=== PATIENT | female | born 1965 | race Caucasian/White ===

== ENCOUNTER 2019-12-15 20:11 | Emergency (ER) | payer BC, SELFPAY ==
--- NOTE | 2019-12-15 20:21 | ED.GENADULT ---
HPI - General Adult General Chief complaint: Extremity Injury, Lower Stated complaint: left ankle injury Time Seen by Provider: 12/15/19 20:20 Source: patient Mode of arrival: Wheelchair Limitations: no limitations History of Present Illness HPI narrative: 54-year-old female here for evaluation of a left foot injury. Patient states that she was getting off of a plane earlier today and stepped wrong on the walkway. She had pain on the back of her leg. Since then has had discomfort with walking particularly in the back of her leg. She did not fall. Did not hit her head. No prior injuries. Has not tried anything for symptoms prior to arrival. Related Data Previous Rx's Medication Instructions Recorded hydrocodone-acetaminophen [[place]] 1 tab PO Q4-6H PRN #10 tab 12/15/19 Allergies Allergy/AdvReac Type Severity Reaction Status Date / Time No Known Drug Allergies Allergy Verified 12/15/19 21:05 Review of Systems Constitutional Constitutional: Denies headache(s) ENT Ears, Nose, Mouth, and Throat: Denies headache(s) Cardiovascular Cardiovascular: Denies chest pain and Denies dyspnea Respiratory Respiratory: Denies dyspnea Musculoskeletal Musculoskeletal: Denies tingling Comments: Left ankle/foot pain Integumentary/Breasts Skin/Breast: Denies lesions and Denies rash Neurologic Neurologic: Denies headache(s) and Denies tingling Hematologic/Lymphatic Hematologic/Lymphatic: Denies easy bleeding and Denies easy bruising Allergic/Immunologic Allergic/Immunologic: Denies urticaria Patient History Medical History Patient denies medical problems (Acute) Social History Smoking Status: Current every day smoker Exam Initial Vital Signs Initial Vital Signs: Vital Signs Temperature 98.5 F 12/15/19 20:22 Pulse Rate 85 12/15/19 20:22 Respiratory Rate 16 12/15/19 20:22 Blood Pressure 185/90 H 12/15/19 20:22 Pulse Oximetry 96 12/15/19 20:22 Const General: cooperative and comfortable Limitations: mental status not altered Cardio Pulses: dorsalis pedis present on the left Neuro Sensory Exam: no sensory deficits noted Extrem Other: Left knee unremarkable. Patient has no tenderness to palpation over the mediolateral malleolus. No tenderness to palpation on the anterior portion of the left ankle. Left foot unremarkable. Left toes unremarkable. Patient does have tenderness to palpation along the Achilles tendon specially on the insertion site on the left. The medial aspect of this Achilles tendon does appear to have a deficit in this area. She still is able to plantar flex her left foot however she is quite a bit of discomfort with this and it is not as mobile as the right. Psych Appearance: grossly normal and well kempt Procedures Orthopedic Splinting/Casting Injury #1: Side: left Lower Extremity Injury Location: ankle Lower Extremity Immobilizer: posterior splint Other Orthopedic Equipment: crutches Post splinting neuro exam: intact Post splinting vascular exam: intact Placed by: Nursing Course Orders Ordered: ED Orders 12/15/19 20:25 XR ankle LT min 3V Stat Discontinued Medications Hydrocodone Bitart/Acetaminophen ([place] 5/325) 1 tab PO NOW ONE Stop: 12/15/19 22:34 Last Admin: 12/15/19 22:40 Dose: 1 tab Documented by: [email or web address] Hydrocodone Bitart/Acetaminophen (Vicodin 5/325 Prepack) 1 bottle MISC SEEINSTR ONE Stop: 12/15/19 22:34 Last Admin: 12/15/19 22:41 Dose: 1 bottle Documented by: [email or web address] Vital Signs Vital signs: Vital Signs - 8 hr 12/15/19 20:22 12/15/19 23:01 Temperature 98.5 F Pulse Rate 85 87 Respiratory Rate 16 24 Blood Pressure 185/90 H 178/90 H Pulse Oximetry 96 97 Medical Decision Making Imaging Data Extremity x-ray #1: Radiologist's Impression: [address] [address] XRay Report Signed Patient: Anabell Kamara LMR#: [id number] : 1965Acct:[id number] Age/Sex: 54 / FDate of Service: 12/15/19 Loc: ED Accession Number: [id number] Procedure: XR ankle LT min 3V Ordering Provider: Nate Galo D.O. PROCEDURE: XR ANKLE LT MIN 3V INDICATIONS: injured while ambulating TECHNIQUE: 3 views of the ankle were acquired. COMPARISON: None. FINDINGS: Bones: No fractures or dislocations. Ankle mortise is normally aligned. No suspicious bony lesions. There is a small corticated ossicle distal to the medial malleolus. Calcaneal spurring. Soft tissues: No tibiotalar joint effusion. Achilles tendon appears normal. Diffuse soft tissue swelling. IMPRESSION: 1. No acute fracture. 2. Corticated ossicle distal to the medial malleolus, likely related to old injury. Dictated by: Jacquelyn Zuniga M.D. on 12/15/2019 at 21:27 Approved by: Jacquelyn Zuniga M.D. on 12/15/2019 at 21:29 [facility] Narrative Medical decision making narrative: Patient is neurovascularly intact. There are no fractures on the x-ray. Her physical exam is concerning for at least a partial disruption of the Achilles tendon on the left. This could potentially be a complete disruption however his somewhat difficult to ascertain today. She was placed in a posterior splint and in plantar flexion of the left ankle. She was given crutches. She is here visiting and is going to return home in approximately 1 week from now. I did inform her to contact the orthopedic provider who she has a relationship with back at home to let him/her know that there was concern about an Achilles tendon rupture. She was also given phone number for the local orthopedic group if she wishes to try to follow-up with them. She is given return precautions and follow-up instructions. She expressed understanding and agreement. Discharge Plan Departure Patient Disposition: Home Clinical Impression: Achilles tendon injury Qualifiers: Encounter type: initial encounter Laterality: left Qualified Code(s): S86.002A - Unspecified injury of left Achilles tendon, initial encounter Discharge Date/Time: 12/15/19 23:08 Instructions: How to Use Crutches, Achilles Tendon Rupture, How to Take Care of Your Splint Activity Restrictions/Additional Instructions: The splint does need to stay on in stay clean and stay dry. Recommend that on Tuesday you contact your orthopedic provider back home for a follow-up. Let them know that there was concern that you have a Achilles tendon tear. If you are going to be in this area for an extended period of time you can contact the [facility] group at [phone]. Return to the emergency department for any new or worsening symptoms Prescriptions: New hydrocodone-acetaminophen [[place]] 5-325 mg tablet 1 tab PO Q4-6H PRN (Reason: pain) Qty: 10 RF: 0
[2019-12-15 20:22] VITALS: BP 185/90; PULSE 85; RESP 16; TEMP 36.9; O2SAT 96; BMI 49.8
--- NOTE | 2019-12-15 20:25 | DI.RAD.S_ITS ---
PROCEDURE: XR ANKLE LT MIN 3V INDICATIONS: injured while ambulating TECHNIQUE: 3 views of the ankle were acquired. COMPARISON: None. FINDINGS: Bones: No fractures or dislocations. Ankle mortise is normally aligned. No suspicious bony lesions. There is a small corticated ossicle distal to the medial malleolus. Calcaneal spurring. Soft tissues: No tibiotalar joint effusion. Achilles tendon appears normal. Diffuse soft tissue swelling. IMPRESSION: 1. No acute fracture. 2. Corticated ossicle distal to the medial malleolus, likely related to old injury. Dictated by: Jacquelyn Zuniga M.D. on 12/15/2019 at 21:27 Approved by: Jacquelyn Zuniga M.D. on 12/15/2019 at 21:29
[2019-12-15] MEDS: HYDROCODONE/ACET 5/325 TABLET 1 TAB PO (22:40)
[2019-12-15] MEDS: HYDROCODONE/ACET 5/325 PREPACK 1 BOTTLE MISC (22:41)
[2019-12-15 23:01] VITALS: BP 178/90; PULSE 87; RESP 24; O2SAT 97
--- NOTE | 2019-12-15 23:22 | PC.NURSE ---
OCL posterior splint applied left foot/ankle/lower leg.Tolerated fair.CMS good to foot following application of splint.Dr Galo in to inspect splint application.
== END 2019-12-15 23:08 | disposition home or self-care (01) ==
PROVIDERS: Emergency Provider Emergency Medicine
DX: S86.002A Unspecified injury of left Achilles tendon, initial encounter (principal)
CPT/HCPCS: 29515; 73610; 99283; 99284